=== PATIENT | male | born 1960 | race American Indian/Alaskan Native ===

== ENCOUNTER 2016-11-12 14:42 | Day surgery (SDC) | payer MEDICAID ==
[2016-11-12] MEDS ORDERED: TRIPLE ANTIBIOTIC TP ONE ×2 (18:43→18:55)
[2016-11-12 19:36] VITALS: BP 132/75
--- NOTE | 2016-11-12 19:42 | Discharge Summary ---
Short Stay Discharge Plan Activity: fall precautions, other Weight Bearing Status: Non-Weight Bearing (Begin gastrostomy tube feeding) Follow up with: BELLA [facility]CR[facility] [Primary Care Provider] - 7 Days
--- NOTE | 2016-11-12 19:42 | Operative Report ---
Operative Report Operative Report: Operative Report: Date of procedure: 11/12/2016 Procedure: Gastrostomy Tube Replacement Attending physician: Mark Nettles MD Display Manager: Mark Nettles MD Indication: Patient is an 56-year-old male who presents with a history of encephalopathy/ altered mental status poor oral intake and weight loss. Patient is moderately malnourished. Patient presents with a malfunctioning disrupted deteriorated gastrostomy tube. This procedure is done to replace the malfunctioning gastrostomy tube. Consent: Informed consent was obtained after advising the patients family regarding nature of this procedure, its indications, potential benefits as well as possible complications including but not limited to bleeding perforation and adverse reaction to medication, infection as well as other cardiopulmonary complications. An informed consent was then obtained after due opportunity was provided for questions and answers. Monitoring: Patient was monitored continuously with pulse oximetry and electrocardiographic recordings as well as blood pressure recordings. Vital signs remained stable throughout this procedure with no untoward events. Preoperative assessment: Patient was assessed immediately prior to this procedure for capacity to tolerate monitored anesthesia care and moderate sedation as well as general anesthesia. Patient's ASA classification is 3, Mallampati class is 2, Hyomental distance is 3. Instrument: 20 [place] non-balloon gastrostomy tube kit ([facility]). Medications: Triple Antibiotic used for local application Description of procedure: Patient was placed in a supine position. The old gastrostomy tube was removed by deflating the balloon. Subsequently the site was vigorously cleaned with Betadine and sterilely draped. The tract was lubricated with Triple Antibiotic. Using traction, the new gastrostomy tube was then placed. There was prompt return of gastric juice. The tube was then secured to the abdomen at 4 cm. The site was further cleaned with Betadine and then there was local application of Triple Antibiotic and finally dressed and secured. Patient tolerated procedure well with no untoward events. Impression: Successful gastrostomy tube replacement. Plan: The tube site is currently at 4 cm. It should be cleaned daily with Betadine and peroxide. Triple Antibiotic should be applied daily to the site with dry gauze dressing a for at least 2-3 weeks. The tube site should be carefully inspected daily for any redness or discharge. The tube should be flushed with 100 mL of water every 6 hours. The tube should also be flushed additionally after administration medications or after completing a feeding session. Tube may be used for enteral feeding immediately. The tube may be used immediately for administration of medications. If the tube is accidentally dislodged, a soil technician should be notified immediately. The head of the bed should be kept at 30 always.
== END 2016-11-12 14:43 | disposition home or self-care (01) ==
LOC: GIO 14:42
PROVIDERS: ATTEND Internal Medicine Gastroenterology
DX: K94.23 Gastrostomy malfunction (principal)
CPT/HCPCS: A6250